=== PATIENT | male | born 1965 | race Caucasian/White ===

== ENCOUNTER 2017-06-09 20:56 | Observation (INO) ==
[2017-06-10] MEDS ORDERED: Naloxone 0.4 MG/ML INJ IVP PRN (00:54)
--- NOTE | 2017-06-10 01:02 | Internal Med History&Physical ---
Date of Encounter: 06/10/17 Time of Encounter: 00:59 Assessment and Plan (1) Chest pain Current visit: No Status: Acute Clinical hx could suggest PE or cardiac ? Will work up PE first with CTA, if PE negative, would rec stress testing to r/o ischemia. Trend trop Qualifiers: Chest pain type: precordial pain Qualified Code(s): R07.2 - Precordial pain (2) Dyspnea on exertion Current visit: No Status: Acute Clinical hx could suggest PE or cardiac ? Will work up PE first with CTA, if PE negative, would rec stress testing to r/o ischemia. Trend trop (3) CAD (coronary artery disease) Current visit: Yes Status: Acute start 81 ASA Qualifiers: Coronary Disease-Associated Artery/Lesion type: [place] artery [place] vs. transplanted heart: [place] heart Qualified Code(s): I25.10 - Atherosclerotic heart disease of [place] coronary artery without angina pectoris (4) GERD (gastroesophageal reflux disease) Current visit: Yes Status: Acute PPI Qualifiers: Esophagitis presence: without esophagitis Qualified Code(s): K21.9 - Gastro -esophageal reflux disease without esophagitis Internal Medicine - H&P: HPI Chief complaint: Chest pain, [place] History of present illness: Mr. Gill is a 51 year old male who presents with acute onset chest pain, [place] since this morning. He was awaken from bed at 4 a.m this morning with acute onset left sided chest pain. Associated with radiation up to shoulder blade. Associated light headed and near syncope sensation. He feels SOB on walking 3-4 steps which is atypical for a high functioning individual like himself. He denies any LLE swelling. He has only recently had health insurance and has therefore been loss to follow up in the past. He is only taking omeprazole. In terms of his medical hx, he had a hx of [place] in 2011 and had stents placement at [facility] - due to insurance issues, he is not on cardiac meds. He also tells me that he is a hx of trauma associated right DVT in 2000 associated with trauma and was reported to be on short term anticoagulation EKG reviewed by self with rate 90 NSR CXR clear Trop negative Past Med Surg Social Fam HX - Past Medical History Medical history: coronary artery disease, GERD, myocardial infarction Psychiatric history: no psych history - Social History Smoking Status: Current every day smoker Smokeless Tobacco Status: No Alcohol use: occasionally Drug use: none - Family History Mother Living Status: Age at : 63 Hx Family Cardiac Disorders: Yes (Heart disease) Hx Family Endocrine Disorder: Yes (DM) Father Living Status: Age at : 73 Cause of : Black lung Hx Family Respiratory Disorders: Yes Internal Medicine - H&P: Meds Omeprazole Magnesium [Prilosec Otc] 20 mg PO DAILY 11/28/16 [History] 3 Allergy/AdvReac Type Severity Reaction Status Date / Time ketorolac [From Toradol] Allergy Rash Verified 11/28/16 20:06 lorazepam [From Ativan] Allergy Rash Verified 11/28/16 20:06 tramadol Allergy Rash Verified 11/28/16 20:06 Zolpidem [From Ambien] Allergy Rash Verified 11/28/16 20:06 All Systems PM: A 10-system review of systems was performed and is negative for pertinent findings except as documented above in the HPI. Review of systems: ROS 14 point review of systems reviewed as best as possible given presentation. Pertinent positive or negative as per HPI or otherwise reviewed as negative - Constitutional Vitals: Temp Pulse Resp BP Pulse Ox 97.8 F 75 16 162/111 98 06/09/17 22:58 06/09/17 22:58 06/09/17 22:58 06/09/17 22:58 06/09/17 22:58 Exam: General - AAO x 3 Psych - Appropriate affect/speech. No agitation Eyes - HA. Eye lids intact. No scleral icterus ENT - Oral mucosa pink, dentition intact. External ear clear/dry/intact. No thyromegaly Lymphatics - No cervical/inguinal lympadenopathy Neuro - No gross peripheral or central neuro deficits with intact CN 2-12 exam Heart - Sinus. RRR. S1 and S2 present. No added HS/murmurs appreciated. No elevated JVD appreciated. No calf swellings/erythema Lung - Adequate air entry b/l, No crackes/wheezes appreciated GI - Soft, non-tender. No hepatosplenomegaly/ascites. BS+ - No CVA/suprapubic tenderness or palpable bladder distension Skin - Intact. No rash/petechiae/ecchymosis. Warm extremities MSK - Joints with normal ROM. No joint swellings
[2017-06-10 01:41] LABS: BUN/Creatinine Ratio 17 (6-26); Blood Urea Nitrogen 12 mg/dL (8-26); Calcium 8.8 mg/dL (8.6-10.8); Carbon Dioxide 23 mEq/L (19-29); Chloride 107 mEq/L (98-109); Glucose 96 mg/dL (70-99); Osmolality,Calculated 282 (280-300); Potassium 3.8 mEq/L (3.5-4.5); Sodium 136 mEq/L (136-145); eGFR For African Americans > 60 (> 60); eGFR For Non-African Americans > 60 (> 60)
[2017-06-10] MEDS ORDERED: *HR* Acetaminophen w/Cod 300-30 mg 1 TAB TABLET PO PRN (03:09)
[2017-06-10] MEDS ORDERED: Nitroglycerin 0.4 MG TAB.SUBL SL PRN (03:09)
[2017-06-10] MEDS ORDERED: *HR* Morphine 2 MG/ML SYRINGE IVP ONE (03:40)
[2017-06-10] MEDS: 0.9 % Sodium Chloride 1,000 ML IVC SCH ×2 (04:00→15:20)
[2017-06-10] MEDS ORDERED: Regadenoson 0.4 MG/5 ML SYRINGE IVP ONE (07:38)
[2017-06-10] MEDS ORDERED: *HR* Morphine 2 MG/ML SYRINGE IVP PRN (09:29)
--- NOTE | 2017-06-10 10:28 | Nuclear Medicine Stress Report ---
Regadenoson Nuclear Stress Name: Ramiro Gill Date of Study: 06/10/2017 Date: 1965 Ht: 71.0 in Medical Record#: [id number] Age: 51 Wt: 200.0 lb Gender: Male Order #: [id number] Location: [facility] Room: [facility] Supervising Provider: Shant Lee CNP Reading Physician: Evon Crespo DO Ordering Physician: Marta Amezquita CNP Primary Care Physician: None Stress Technologist: Jessica Machado LANDSCAPE ACCOUNT MANAGER, CCT Gate Watchman: Virginie Raymundo Indications: Chest Pain Impression: Perfusion imaging negative for ischemia or infarct. Inferior wall artifact. Pharmacologic stress ECG is negative for ischemia at level of heart rate achieved. Patient described 7/10 chest pain prior to the start of study, increasing to 8/10 with pharmacologic infusion and then returning to 7/10 at end of testing. Symptoms are non-diagnostic. Gated EF = 60%. Recommend clinical correlation. History: Hypercholesteremia History of Smoking Prior PCI Stress Test Summary: Stress Test Type: Pharmacologic Regadenoson 0.4mg/5ml given IV Baseline Information: Initial Heart Rate: 71 Blood Pressure: 108/88 Stress Information: Test Terminated Due to (primary): As per protocol Maximum Blood Pressure: 128/84 Maximum Heart Rate: 93 Percent Maximum Heart Rate Achieved: 56 Double Product: [id number] METS Reached: 1 Symptoms: Chest pain Nuclear Summary: SPECT myocardial perfusion imaging using Tc99m Sestamibi given intravenously was performed at rest and following cardiac stress testing. The resting images were obtained following initial dose of 11.7 mCi. Following stress an additional dose of 33.2 mCi was given at peak exercise or 30 seconds post regadenoson infusion. Medication Given: Time Medication Dose Units Route Findings: Stress Note * Resting ECG demonstrated normal sinus rhythm with possible old septal [place]. * Pharmacologic stress ECG is negative for ischemia at level of heart rate achieved. * No arrhythmias were noted during stress. * Patient described 7/10 chest pain prior to the start of study, increasing to 8/10 with pharmacologic infusion and then returning to 7/10 at end of testing. Hemodynamic responses * Normal hemodynamic responses to pharmacologic stress. Study Quality * Study quality was fair. Gated EF % * Gated EF = 60%. Left Ventricle * The left ventricle is not dilated. TID * No evidence of transient ischemic dilatation. Lung Uptake * There is no evidence of increase lung uptake. NORMALS * Normal wall motion. PERFUSION * There is a medium sized fixed perfusion defect involving the basal to distal infero-septum, the apical inferior wall and apex. Wall motion is normal. Findings represent artifact. No ischemia or infarct. * Other segments demonstrate normal rest and stress perfusion. Updated by Evon Crespo on 06/10/2017 10:21:30 AM electronically signed on 06/10/2017 10:23:22 AM with status of Final
[2017-06-10 15:22] VITALS: BP 122/78
--- NOTE | 2017-06-10 15:48 | Discharge Summary ---
Date of Encounter: 06/10/17 Time of Encounter: 15:43 - Discharge Diagnosis (1) Chest pain Priority: Primary Status: Acute Qualifiers: Chest pain type: precordial pain Qualified Code(s): R07.2 - Precordial pain (2) CAD (coronary artery disease) Priority: Secondary Status: Chronic Qualifiers: Coronary Disease-Associated Artery/Lesion type: [place] artery [place] vs. transplanted heart: [place] heart Qualified Code(s): I25.10 - Atherosclerotic heart disease of [place] coronary artery without angina pectoris (3) GERD (gastroesophageal reflux disease) Priority: Secondary Status: Acute Qualifiers: Esophagitis presence: without esophagitis Qualified Code(s): K21.9 - Gastro -esophageal reflux disease without esophagitis (4) Tobacco dependence Priority: Secondary Status: Acute - Discharge Medications Prescriptions: Aspirin Enteric Coated [Aspirin EC] 81 mg PO DAILY #30 tablet. Atorvastatin Calcium [Lipitor] 20 mg PO HS #30 tablet Metoprolol [Lopressor] 12.5 mg PO BID 30 Days Nitroglycerin 0.4 mg SL DAILY PRN #20 tab.subl PRN Reason: Chest Pain Home Medications: Omeprazole Magnesium [Prilosec Otc] 20 mg PO DAILY 11/28/16 [History] Aspirin Enteric Coated [Aspirin EC] 81 mg PO DAILY #30 tablet. 06/10/17 [Rx] Atorvastatin Calcium [Lipitor] 20 mg PO HS #30 tablet 06/10/17 [Rx] Metoprolol [Lopressor] 12.5 mg PO BID 30 Days 06/10/17 [Rx] Nicotine Patch [Nicoderm] 21 mg TD DAILY #30 patch.td24 06/10/17 [Rx] Nitroglycerin 0.4 mg SL DAILY PRN #20 tab.subl 06/10/17 [Rx] Allergies/Adverse Reactions: 3 Allergy/AdvReac Type Severity Reaction Status Date / Time ketorolac [From Toradol] Allergy Rash Verified 11/28/16 20:06 lorazepam [From Ativan] Allergy Rash Verified 11/28/16 20:06 tramadol Allergy Rash Verified 11/28/16 20:06 Zolpidem [From Ambien] Allergy Rash Verified 11/28/16 20:06 Procedures/tests Complete & Pending: Procedures Performed prior 72 hours Category Date Time Status CT angio chest [CT] Stat Cat Scan 06/10/17 00:56 Completed NM hazel perf SPECT multi [NM] Routine Exams 06/10/17 06:17 Taken SP pharm nuclear stress Routine Y 06/10/17 06:16 Completed Date of admission: 06/09/17 22:33 Primary care physician: PCP NONE - Patient Status Disposition: Home, Self-Care Condition: Good Overall status at discharge: patient is back to baseline - Discharge Instructions Follow Up With: NONE,PCP [Primary Care Provider] - - Diet and Activity Activity: increase activity as tolerated Diet: low salt diet Hospital course: Mr. Gill is a 51 year old male who presents with acute onset chest pain, [place] since this morning. He was awaken from bed at 4 a.m this morning with acute onset left sided chest pain. Associated with radiation up to shoulder blade. Associated light headed and near syncope sensation. He feels SOB on walking 3-4 steps which is atypical for a high functioning individual like himself. He denies any LLE swelling. He has only recently had health insurance and has therefore been loss to follow up in the past. He is only taking omeprazole. In terms of his medical hx, he had a hx of [place] in 2011 and had stents placement at [facility] - due to insurance issues, he is not on cardiac meds. He also tells me that he is a hx of trauma associated right DVT in 2000 associated with trauma and was reported to be on short term anticoagulation. 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 So far his troponin x 3 negative and no acute EKG changes noticed. His CTA of chest negative for any PE. Since he is high risk for ACS, we did stress test which came back as negative for any ischemia. Pt denied any active chest pain now. I counseled the pt about importance of taking all his cardiac medication especially after a stent placement. Also counseled to quit smoking. Sent him home on nicotine patches. - Time Spent with Patient Total time spent providing and/or coordinating discharge services: - Constitutional Vitals: Temp Pulse Resp BP Pulse Ox 97.6 F 72 16 122/78 95 06/10/17 15:21 06/10/17 15:21 06/10/17 15:21 06/10/17 15:21 06/10/17 15:21 General appearance: Present: A&O X 3, pleasant, no acute distress - Head Head exam: Present: atraumatic, normal inspection - Respiratory Respiratory exam: Present: decreased breath sounds. Absent: rales, respiratory distress, rhonchi, wheezes - Cardiovascular Cardiovascular exam: Present: RRR, +S1, +S2. Absent: diastolic murmur, gallop, rubs, systolic murmur - Extremities Exam Extremities exam: Present: warm, radial pulses palpable and symmetrical. Absent : calf tenderness, cyanotic, pedal edema - Neurological Exam Neurological exam: Present: alert, oriented X3 - Psychiatric Psychiatric exam: Present: normal affect, normal mood
== END 2017-06-10 17:55 | disposition home or self-care (01) ==
LOC: 3BNU
PROVIDERS: ADMIT Internal Medicine Hematology & Oncology; ATTEND Nurse Practitioner Family

== ENCOUNTER 2018-02-15 13:07 | Observation (INO) ==
[2018-02-15] MEDS ORDERED: 0.9 % Sodium Chloride 1,000 ML IVC ONE (13:17)
[2018-02-15] MEDS ORDERED: *HR* Morphine 2 MG/ML SYRINGE IVP ONE ×2 (13:17→15:14)
[2018-02-15] MEDS ORDERED: Isovue-370 500 ML INFUS..BTL IV ONE (13:18)
--- NOTE | 2018-02-15 13:22 | Emergency Department Note ---
Disposition Clinical Impression: Diverticulitis Disposition: Admitted As Inpatient Condition: Good Time of Disposition: 15:16 Abdominal Pain HPI - General Chief Complaint: ED Abdominal Pain Stated Complaint: Possible perforation Time Seen by Provider: 02/15/18 13:14 Source: patient Mode of arrival: ambulatory Limitations: no limitations Nursing Notes Reviewed: Yes Vital Signs Reviewed: Yes - History of Present Illness HPI Narrative: Patient presents to the ED with the chief complaint of left lower quadrant abdominal pain. Onset was 4 days ago, significantly worse today. 2 years ago he had a perforated diverticulitis and he states this feels the same. Febrile up to 102.4. Associated with nausea and vomiting. No chest pain or shortness of breath. No diarrhea. Has not had anything to eat or drink in 48 hours. Due to pain and vomiting. He was able to take some Tylenol today, which brought his fever down. He states that they wanted to do a colostomy previously, but he did not want that at this time, but he cannot take the pain anymore Pain Scale: 9 - Related Data Home Medications Medication Instructions Recorded Confirmed Acetaminophen [Tylenol] 650 mg PO Q6HR PRN 02/15/18 02/15/18 Etodolac [Etodolac] 400 mg PO BID PRN 02/15/18 02/15/18 Gabapentin [Neurontin] 300 mg PO TID PRN 02/15/18 02/15/18 Allergies Allergy/AdvReac Type Severity Reaction Status Date / Time ketorolac [From Toradol] Allergy Rash Verified 02/15/18 13:42 lorazepam [From Ativan] Allergy Rash Verified 02/15/18 13:42 tramadol Allergy Rash Verified 02/15/18 13:42 Zolpidem [From Ambien] Allergy Rash Verified 02/15/18 13:42 Review of Systems: As reviewed in the HPI. All other systems reviewed are negative or normal. Abdominal Pain PMH - Past Medical History Medical history: Reports: coronary artery disease, GERD, myocardial infarction Male Surgical History: Reports: appendectomy, other Psychiatric history: Reports: no psych history - Social History Smoking status: Current every day smoker Alcohol use: Reports: occasionally Drug use: Reports: none Physical Exam - General Limitations: no limitations General appearance: alert, in no apparent distress - ENT ENT exam: mucous membranes dry - Chest Chest inspection: Present: normal inspection, symmetric chest wall rise - Respiratory Respiratory exam: Present: normal lung sounds bilaterally - Cardiovascular Cardiovascular exam: Present: tachycardia, normal heart sounds - Abdominal Exam Abdominal exam: Present: soft, tenderness, distention, rebound. Absent: Non- Tender, guarding Abdominal tenderness: Present: LLQ, moderate, severe - Extremities Exam Extremities exam: Present: normal inspection, full ROM. Absent: tenderness, pedal edema - Back Exam Back exam: Present: normal inspection, full ROM. Absent: tenderness - Neurological Exam Neurological exam: Present: alert, oriented X3 - Psychiatric Psychiatric exam: Present: normal affect, normal mood - Skin Skin exam: Present: warm, dry, intact, normal color Course Course Narrative: Patient likely with perforated diverticulitis versus abscess. Labs, CT with IV contrast and admission. - Reevaluation(s) Reevaluation #1: no perf or abscess, patient isn't able to tolerate PO so will admit. Vital Signs Temperature 97.9 F 02/15/18 13:08 Pulse Rate 108 02/15/18 13:08 Respiratory Rate 18 02/15/18 13:08 Blood Pressure 141/94 02/15/18 13:08 O2 Sat by Pulse Oximetry 94 02/15/18 13:08 Temperature 99.0 F 02/15/18 13:24 Pulse Rate 89 02/15/18 14:00 Respiratory Rate 18 02/15/18 14:00 Blood Pressure 148/94 02/15/18 14:00 O2 Sat by Pulse Oximetry 96 02/15/18 14:00 Oxygen Delivery Oxygen Delivery Room Air Abdominal Pain - Medical Records Medical records reviewed: Yes I reviewed the patient's medical records. - Lab Data Lab results reviewed: Yes I reviewed the patient's lab results. Result diagrams: 02/15/18 13:23 02/15/18 13:23 Lab Results 02/15/18 02/15/18 02/15/18 Range/Units 13:23 13:23 13:23 WBC 8.3 (4.3-11.1) K/mcL RBC 5.15 (4.19-5.50) M/mcL Hgb 15.3 (12.9-16.9) g/dL Hct 43.6 (37.5-50.1) % MCV 84.7 (83.0-100.0) fL MCH 29.7 (28.0-33.3) pg MCHC 35.1 (31.6-35.5) g/dL RDW 13.4 (11.5-14.5) % Plt Count 279 (140-400) K/mcL MPV 8.9 L (9.4-12.4) fL Immature Gran % 0.1 (0-4) % Seg Neutrophils % 68.0 % Lymphocytes % 24.2 % Monocytes % 5.7 % Eosinophils % 1.5 % Basophils % 0.5 % Neutrophils # 5.6 (1.6-8.9) K/mcL Lymphocytes # 2.0 (0.6-4.6) K/mcL Monocytes # 0.5 (0.0-1.3) K/mcL Eosinophils # 0.1 (0.0-0.6) K/mcL Basophils # 0.0 (0.0-0.2) K/mcL Sodium 138 (136-145) mEq/L Potassium 3.8 (3.5-5.1) mEq/L Chloride 107 (98-107) mEq/L Carbon Dioxide 25 (23-29) mEq/L BUN 13 (6-20) mg/dL Creatinine 0.91 (0.70-1.30) mg/dL Est GFR ( Amer) > 60 (> 60) Est GFR (Non-Af Amer) > 60 (> 60) BUN/Creatinine Ratio 14 (6-26) Glucose 153 H (70-105) mg/dL Calculated Osmolality 289 (280-300) Lactic Acid 1.2 (0.5-2.2) mmol/L Calcium 8.8 (8.6-10.3) mg/dL Total Bilirubin 0.4 (0.3-1.0) mg/dL Direct Bilirubin 0.1 (0.0-0.2) mg/dL Indirect Bilirubin 0.3 (0.0-1.2) mg/dL AST 18 (13-39) Units/L ALT 13 (7-52) Units/L Alkaline Phosphatase 66 (34-104) Units/L Troponin I < 0.03 (< 0.04) ng/mL Serum Total Protein 6.3 L (6.4-8.9) g/dL Albumin 4.0 (3.5-5.7) g/dL Globulin 2.3 L (2.4-3.5) g/dL Albumin/Globulin Ratio 1.7 (1.1-2.2) Lipase 157 H (11-82) Units/L Urine Color (Yellow) Urine Clarity (Clear) Urine pH (5.0-8.0) pH Units Ur Specific [place] (1.010-1.025) Urine Protein (Neg-Trace) mg/dL Urine Glucose (UA) (Normal) mg/dL Urine Ketones (Negative) mg/dL Urine Blood (Negative) Urine Nitrite (Negative) Urine Bilirubin (Negative) Urine Urobilinogen (Normal) mg/dL Ur Leukocyte Esterase (Negative) Urine Microscopic RBC (0-3) per hpf Ur Squamous Epith Cells (None-Few) per lpf Urine Bacteria (None-Few) per hpf Hyaline Casts (None-Few) per lpf Ur Culture Indicated? (NO) 02/15/18 Range/Units 13:54 WBC (4.3-11.1) K/mcL RBC (4.19-5.50) M/mcL Hgb (12.9-16.9) g/dL Hct (37.5-50.1) % MCV (83.0-100.0) fL MCH (28.0-33.3) pg MCHC (31.6-35.5) g/dL RDW (11.5-14.5) % Plt Count (140-400) K/mcL MPV (9.4-12.4) fL Immature Gran % (0-4) % Seg Neutrophils % % Lymphocytes % % Monocytes % % Eosinophils % % Basophils % % Neutrophils # (1.6-8.9) K/mcL Lymphocytes # (0.6-4.6) K/mcL Monocytes # (0.0-1.3) K/mcL Eosinophils # (0.0-0.6) K/mcL Basophils # (0.0-0.2) K/mcL Sodium (136-145) mEq/L Potassium (3.5-5.1) mEq/L Chloride (98-107) mEq/L Carbon Dioxide (23-29) mEq/L BUN (6-20) mg/dL Creatinine (0.70-1.30) mg/dL Est GFR ( Amer) (> 60) Est GFR (Non-Af Amer) (> 60) BUN/Creatinine Ratio (6-26) Glucose (70-105) mg/dL Calculated Osmolality (280-300) Lactic Acid (0.5-2.2) mmol/L Calcium (8.6-10.3) mg/dL Total Bilirubin (0.3-1.0) mg/dL Direct Bilirubin (0.0-0.2) mg/dL Indirect Bilirubin (0.0-1.2) mg/dL AST (13-39) Units/L ALT (7-52) Units/L Alkaline Phosphatase (34-104) Units/L Troponin I (< 0.04) ng/mL Serum Total Protein (6.4-8.9) g/dL Albumin (3.5-5.7) g/dL Globulin (2.4-3.5) g/dL Albumin/Globulin Ratio (1.1-2.2) Lipase (11-82) Units/L Urine Color Yellow (Yellow) Urine Clarity Clear (Clear) Urine pH 7.0 (5.0-8.0) pH Units Ur Specific [place] 1.023 (1.010-1.025) Urine Protein Trace (Neg-Trace) mg/dL Urine Glucose (UA) Normal (Normal) mg/dL Urine Ketones Negative (Negative) mg/dL Urine Blood Negative (Negative) Urine Nitrite Negative (Negative) Urine Bilirubin Negative (Negative) Urine Urobilinogen Normal (Normal) mg/dL Ur Leukocyte Esterase Negative (Negative) Urine Microscopic RBC 3-5 H (0-3) per hpf Ur Squamous Epith Cells Moderate H (None-Few) per lpf Urine Bacteria None Seen (None-Few) per hpf Hyaline Casts None Seen (None-Few) per lpf Ur Culture Indicated? NO (NO) - Radiology Data Radiology results reviewed: Yes I reviewed the patient's radiology results. - EKG Data EKG attestation: Yes I reviewed and interpreted this EKG. EKG results narrative: Sinus tach, rate 101, LA interval 143, QRS 78, QTC 407, normal axis, no acute ischemic changes
--- NOTE | 2018-02-15 13:24 | Emergency Department Note ---
Disposition Clinical Impression: Diverticulitis Disposition: Admitted As Inpatient Condition: Good General Adult HPI - General Chief complaint: ED Abdominal Pain Stated complaint: Possible perforation Time Seen by Provider: 02/15/18 13:14 Nursing Notes Reviewed: Yes Vital Signs Reviewed: Yes - History of Present Illness Pain Scale: 9 - Related Data Home Medications Medication Instructions Recorded Confirmed Acetaminophen [Tylenol] 650 mg PO Q6HR PRN 02/15/18 02/15/18 Etodolac [Etodolac] 400 mg PO BID PRN 02/15/18 02/15/18 Gabapentin [Neurontin] 300 mg PO TID PRN 02/15/18 02/15/18 Allergies Allergy/AdvReac Type Severity Reaction Status Date / Time ketorolac [From Toradol] Allergy Rash Verified 02/15/18 13:42 lorazepam [From Ativan] Allergy Rash Verified 02/15/18 13:42 tramadol Allergy Rash Verified 02/15/18 13:42 Zolpidem [From Ambien] Allergy Rash Verified 02/15/18 13:42 Past Medical History - Past Medical History Medical history: Reports: coronary artery disease, GERD, myocardial infarction Psychiatric history: Reports: no psych history - Social History Smoking Status: Current every day smoker Smokeless Tobacco Status: No Alcohol use: Reports: occasionally Drug use: Reports: none Course Vital Signs Temperature 97.9 F 02/15/18 13:08 Pulse Rate 108 02/15/18 13:08 Respiratory Rate 18 02/15/18 13:08 Blood Pressure 141/94 02/15/18 13:08 O2 Sat by Pulse Oximetry 94 02/15/18 13:08 Temperature 96.9 F L 02/15/18 16:21 Pulse Rate 78 02/15/18 16:21 Respiratory Rate 18 02/15/18 16:21 Blood Pressure 147/90 02/15/18 18:03 O2 Sat by Pulse Oximetry 97 02/15/18 16:28 Oxygen Delivery Oxygen Delivery Room Air Medical Decision Making - MDM Narrative Medical decision making narrative: This documentation is done with the assistance of Dragon dictation. Despite efforts made to ensure accuracy, there may be inaccuracies in folder stitcher operator or spelling and typographical errors. Patient seen with left lower quadrant pain and suspicion of perforation. He said diverticulitis in the past with perforation. We will get labs CT order pain medications fluids and something for nausea and then he will need admission. He is in agreement with this plan. Abdomen/Pelvis CT 02/15/18 13:18 IMPRESSION: Findings compatible with acute uncomplicated sigmoid diverticulitis. No evidence for perforation or abscess formation. Mild wall thickening involving descending colon could relate to underdistention or to the sigmoid diverticulitis, but superimposed nonspecific infectious or inflammatory colitis not excluded. Multiple prominent fluid-filled loops of small bowel to the left predominantly mid to lower abdomen could reflect a focal ileus relating to the sigmoid diverticulitis. Early or partial small bowel obstruction not entirely excluded. D/ / 02/15/2018 14:48:43 Chavez Whiteside MD / jerrod Interpreting Provider: Chavez Whiteside MD Patient CT is positive for diverticulitis no perforation. We will start him on IV antibiotics and admit. He is in agreement with plan. - Lab Data Result diagrams: 02/15/18 13:23 02/15/18 13:23 Lab Results 02/15/18 02/15/18 02/15/18 Range/Units 13:23 13:23 13:23 WBC 8.3 (4.3-11.1) K/mcL RBC 5.15 (4.19-5.50) M/mcL Hgb 15.3 (12.9-16.9) g/dL Hct 43.6 (37.5-50.1) % MCV 84.7 (83.0-100.0) fL MCH 29.7 (28.0-33.3) pg MCHC 35.1 (31.6-35.5) g/dL RDW 13.4 (11.5-14.5) % Plt Count 279 (140-400) K/mcL MPV 8.9 L (9.4-12.4) fL Immature Gran % 0.1 (0-4) % Seg Neutrophils % 68.0 % Lymphocytes % 24.2 % Monocytes % 5.7 % Eosinophils % 1.5 % Basophils % 0.5 % Neutrophils # 5.6 (1.6-8.9) K/mcL Lymphocytes # 2.0 (0.6-4.6) K/mcL Monocytes # 0.5 (0.0-1.3) K/mcL Eosinophils # 0.1 (0.0-0.6) K/mcL Basophils # 0.0 (0.0-0.2) K/mcL Sodium 138 (136-145) mEq/L Potassium 3.8 (3.5-5.1) mEq/L Chloride 107 (98-107) mEq/L Carbon Dioxide 25 (23-29) mEq/L BUN 13 (6-20) mg/dL Creatinine 0.91 (0.70-1.30) mg/dL Est GFR ( Amer) > 60 (> 60) Est GFR (Non-Af Amer) > 60 (> 60) BUN/Creatinine Ratio 14 (6-26) Glucose 153 H (70-105) mg/dL Calculated Osmolality 289 (280-300) Lactic Acid 1.2 (0.5-2.2) mmol/L Calcium 8.8 (8.6-10.3) mg/dL Total Bilirubin 0.4 (0.3-1.0) mg/dL Direct Bilirubin 0.1 (0.0-0.2) mg/dL Indirect Bilirubin 0.3 (0.0-1.2) mg/dL AST 18 (13-39) Units/L ALT 13 (7-52) Units/L Alkaline Phosphatase 66 (34-104) Units/L Troponin I < 0.03 (< 0.04) ng/mL Serum Total Protein 6.3 L (6.4-8.9) g/dL Albumin 4.0 (3.5-5.7) g/dL Globulin 2.3 L (2.4-3.5) g/dL Albumin/Globulin Ratio 1.7 (1.1-2.2) Lipase 157 H (11-82) Units/L Urine Color (Yellow) Urine Clarity (Clear) Urine pH (5.0-8.0) pH Units Ur Specific [place] (1.010-1.025) Urine Protein (Neg-Trace) mg/dL Urine Glucose (UA) (Normal) mg/dL Urine Ketones (Negative) mg/dL Urine Blood (Negative) Urine Nitrite (Negative) Urine Bilirubin (Negative) Urine Urobilinogen (Normal) mg/dL Ur Leukocyte Esterase (Negative) Urine Microscopic RBC (0-3) per hpf Ur Squamous Epith Cells (None-Few) per lpf Urine Bacteria (None-Few) per hpf Hyaline Casts (None-Few) per lpf Ur Culture Indicated? (NO) 02/15/18 Range/Units 13:54 WBC (4.3-11.1) K/mcL RBC (4.19-5.50) M/mcL Hgb (12.9-16.9) g/dL Hct (37.5-50.1) % MCV (83.0-100.0) fL MCH (28.0-33.3) pg MCHC (31.6-35.5) g/dL RDW (11.5-14.5) % Plt Count (140-400) K/mcL MPV (9.4-12.4) fL Immature Gran % (0-4) % Seg Neutrophils % % Lymphocytes % % Monocytes % % Eosinophils % % Basophils % % Neutrophils # (1.6-8.9) K/mcL Lymphocytes # (0.6-4.6) K/mcL Monocytes # (0.0-1.3) K/mcL Eosinophils # (0.0-0.6) K/mcL Basophils # (0.0-0.2) K/mcL Sodium (136-145) mEq/L Potassium (3.5-5.1) mEq/L Chloride (98-107) mEq/L Carbon Dioxide (23-29) mEq/L BUN (6-20) mg/dL Creatinine (0.70-1.30) mg/dL Est GFR ( Amer) (> 60) Est GFR (Non-Af Amer) (> 60) BUN/Creatinine Ratio (6-26) Glucose (70-105) mg/dL Calculated Osmolality (280-300) Lactic Acid (0.5-2.2) mmol/L Calcium (8.6-10.3) mg/dL Total Bilirubin (0.3-1.0) mg/dL Direct Bilirubin (0.0-0.2) mg/dL Indirect Bilirubin (0.0-1.2) mg/dL AST (13-39) Units/L ALT (7-52) Units/L Alkaline Phosphatase (34-104) Units/L Troponin I (< 0.04) ng/mL Serum Total Protein (6.4-8.9) g/dL Albumin (3.5-5.7) g/dL Globulin (2.4-3.5) g/dL Albumin/Globulin Ratio (1.1-2.2) Lipase (11-82) Units/L Urine Color Yellow (Yellow) Urine Clarity Clear (Clear) Urine pH 7.0 (5.0-8.0) pH Units Ur Specific [place] 1.023 (1.010-1.025) Urine Protein Trace (Neg-Trace) mg/dL Urine Glucose (UA) Normal (Normal) mg/dL Urine Ketones Negative (Negative) mg/dL Urine Blood Negative (Negative) Urine Nitrite Negative (Negative) Urine Bilirubin Negative (Negative) Urine Urobilinogen Normal (Normal) mg/dL Ur Leukocyte Esterase Negative (Negative) Urine Microscopic RBC 3-5 H (0-3) per hpf Ur Squamous Epith Cells Moderate H (None-Few) per lpf Urine Bacteria None Seen (None-Few) per hpf Hyaline Casts None Seen (None-Few) per lpf Ur Culture Indicated? NO (NO) Attestation Statement - Attestation Attestation: I examined this patient and my medical decision-making was reviewed with the Resident Physician. I agree with the documented findings, disposition and treatment plan as described except to the extent set forth below. Patient seen and evaluated by Dr. Manzano and myself, I agree with his evaluation management plan, supervise care the patient's stay.
[2018-02-15 13:33] LABS: Basophils % 0.5 %; Eosinophils # 0.1 K/mcL (0.0-0.6); Eosinophils % 1.5 %; Hematocrit 43.6 % (37.5-50.1); Hemoglobin 15.3 g/dL (12.9-16.9); Immature Granulocytes % 0.1 % (0-4); Lymphocytes % 24.2 %; Mean Corpuscular HGB Conc 35.1 g/dL (31.6-35.5); Mean Corpuscular Hemoglobin 29.7 pg (28.0-33.3); Mean Corpuscular Volume 84.7 fL (83.0-100.0); Mean Platelet Volume 8.9 fL (9.4-12.4); Monocytes # 0.5 K/mcL (0.0-1.3); Monocytes % 5.7 %; Neutrophils # 5.6 K/mcL (1.6-8.9); Platelet Count 279 K/mcL (140-400); Red Blood Count 5.15 M/mcL (4.19-5.50); Red Cell Distribution Width 13.4 % (11.5-14.5)
[2018-02-15 14:04] LABS: Troponin I < 0.03 ng/mL (< 0.04)
[2018-02-15 14:05] LABS: Alanine Aminotransferase 13 Units/L (7-52); Albumin/Globulin Ratio 1.7 (1.1-2.2); Alkaline Phosphatase 66 Units/L (34-104); Aspartate Amino Transferase 18 Units/L (13-39); BUN/Creatinine Ratio 14 (6-26); Bilirubin,Direct 0.1 mg/dL (0.0-0.2); Bilirubin,Indirect 0.3 mg/dL (0.0-1.2); Bilirubin,Total 0.4 mg/dL (0.3-1.0); Blood Urea Nitrogen 13 mg/dL (6-20); Calcium 8.8 mg/dL (8.6-10.3); Carbon Dioxide 25 mEq/L (23-29); Chloride 107 mEq/L (98-107); Globulin 2.3 g/dL (2.4-3.5); Glucose 153 mg/dL (70-105); Lipase 157 Units/L (11-82); Osmolality,Calculated 289 (280-300); Potassium 3.8 mEq/L (3.5-5.1); Sodium 138 mEq/L (136-145); Total Protein 6.3 g/dL (6.4-8.9); eGFR For African Americans > 60 (> 60); eGFR For Non-African Americans > 60 (> 60)
[2018-02-15 14:09] LABS: Bilirubin,Urine Negative (Negative); Blood,Urine Negative (Negative); Color,Urine Yellow (Yellow); Glucose,Urine (UA) Normal (Normal); Ketones,Urine Negative (Negative); Leukocyte Esterase,Urine Negative (Negative); Nitrite,Urine Negative (Negative); Protein,Urine Trace mg/dL (Neg-Trace); Specific Gravity,Urine 1.023 (1.010-1.025); Urobilinogen,Urine Normal (Normal)
[2018-02-15 14:10] LABS: Bacteria,Urine None Seen per hpf (None-Few); Hyaline Casts,Urine None Seen per lpf (None-Few); Squamous Epithelial Cell,Urine Moderate per lpf (None-Few)
[2018-02-15 14:14] LABS: Clarity,Urine Clear (Clear)
[2018-02-15] MEDS ORDERED: MetroNIDAZOLE 500 MG/100 ML 500 MG/100 ML BAG IVPB ONE (14:55)
[2018-02-15] MEDS ORDERED: Ondansetron 4 MG/2 ML VIAL IVP ONE (15:14)
[2018-02-15] MEDS ORDERED: Ketorolac 30 MG/ML VIAL IVP PRN (15:49)
[2018-02-15] MEDS ORDERED: Ondansetron 4 MG/2 ML VIAL IVP PRN (15:49)
[2018-02-15] MEDS ORDERED: Naloxone 0.4 MG/ML INJ IVP PRN (15:49)
[2018-02-15] MEDS ORDERED: *HR* Morphine 2 MG/ML SYRINGE IVP PRN (16:26)
[2018-02-15] MEDS ORDERED: *HR* HYDROcodone/Acet 5/325 mg TABLET PO PRN (16:30)
--- NOTE | 2018-02-15 16:33 | Internal Med History&Physical ---
<Melani Vera Estee - Last Filed: 02/15/18 16:24> Date of Encounter: 02/15/18 Time of Encounter: 16:24 Internal Medicine - H&P: HPI History of present illness: Mr. Gill is a 52 year old male who presented to the ED with LLQ abdominal pain with associated intermittent nausea that began 4 days ago. He also reported some fevers, and poor appetite. The patient reported a history of perforated diverticulitis about 2 years ago. He refused any surgical intervention during that time, so was treated with antibiotics. The ABD CT showed a sigmoid diverticulitis and mild wall thickening, no perforation was seen. No early SBO obstruction seen Gastroenterology was consulted and accepts the patient for consult. GI recommended that the patient start on zosyn 3.375 q8h only. Paiteint was given morphine in the ED with effective results. Will place scd's and make the pt NPO. Bp is marginally elevated, likely due to pain. WBC is 8.3. Will give ivf's, IV zosyn, npo, and pain control. Patient indicated also has a history of CAD with 1 stent. Past Med Surg Social Fam HX - Past Medical History Medical history: coronary artery disease, GERD, myocardial infarction Psychiatric history: no psych history - Social History Smoking Status: Current every day smoker Smokeless Tobacco Status: No Alcohol use: occasionally Drug use: none - Family History Mother Living Status: Hx Family Cardiac Disorders: Yes (Heart disease) Hx Family Endocrine Disorder: Yes (DM) Father Living Status: Hx Family Respiratory Disorders: Yes Internal Medicine - H&P: Meds Acetaminophen [Tylenol] 650 mg PO Q6HR PRN 02/15/18 [History] Etodolac [Etodolac] 400 mg PO BID PRN 02/15/18 [History] Gabapentin [Neurontin] 300 mg PO TID PRN 02/15/18 [History] 3 Allergy/AdvReac Type Severity Reaction Status Date / Time ketorolac [From Toradol] Allergy Rash Verified 02/15/18 13:42 lorazepam [From Ativan] Allergy Rash Verified 02/15/18 13:42 tramadol Allergy Rash Verified 02/15/18 13:42 Zolpidem [From Ambien] Allergy Rash Verified 02/15/18 13:42 All Systems PM: A 10-system review of systems was performed and is negative for pertinent findings except as documented above in the HPI. - Gastrointestinal Gastrointestinal: abdominal pain, nausea, vomiting - Constitutional Vitals: Temp Pulse Resp BP Pulse Ox 96.9 F L 78 18 163/109 97 02/15/18 16:21 02/15/18 16:21 02/15/18 16:21 02/15/18 16:21 02/15/18 16:21 General appearance: Present: A&O X 3 - Head Head exam: Present: atraumatic, normocephalic - Eye Eye exam: Present: PERRL, conjuntiva pink, sclera anicteric Pupils: Present: PERRL - Neck Neck exam general surgery: Present: supple, trachea midline. Absent: lymphadenopathy - Respiratory Respiratory exam: Present: CTAB. Absent: accessory muscle use, rales, rhonchi, wheezes - Cardiovascular Cardiovascular exam: Present: RRR, +S1, +S2. Absent: diastolic murmur, gallop, rubs, systolic murmur - GI/Abdominal GI/Abdominal exam: Present: normal bowel sounds, soft, tenderness, no peritoneal signs. Absent: distended - Extremities Exam Extremities exam: Present: warm, radial pulses palpable and symmetrical. Absent : calf tenderness, cyanotic, pedal edema - Neurological Exam Neurological exam: Present: CN II-XII intact, oriented X3, no focal deficits. Absent: pronater drift, facial droop, speech deficit - Skin Skin exam: Present: dry, intact Internal Med - H&P Results - Labs CBC & Chem 7: 02/15/18 13:23 02/15/18 13:23 - Assessment and plan (1) Diverticulitis Status: Acute Assessment and plan: The patient will be admitted to hospital for sigmoid diverticulitis. IVF, NPO status, iv zosyn q8h, and pain control. The patient will be seen by GI for further work up. The patient has hx of diverticulitis with perforation, which was treated with oral iv atb, 2 years ago. - Time Spent With Patient Total time spent is greater than 50% in coordination of care (as documented) at patient's floor/unit and/or counseling patient: 25 - 35 minutes <Ethan Durham P - Last Filed: 02/17/18 07:59> Date of Encounter: 02/17/18 Internal Medicine - H&P: HPI History of present illness: Mr. Gill is a 52 year old male All Systems PM: A 10-system review of systems was performed and is negative for pertinent findings except as documented above in the HPI. - Constitutional Vitals: Temp Pulse Resp BP Pulse Ox 97.9 F 73 15 162/100 96 02/15/18 19:15 02/15/18 19:15 02/15/18 19:15 02/15/18 19:15 02/15/18 19:15 Internal Med - H&P Results - Labs CBC & Chem 7: 02/15/18 13:23 02/15/18 13:23 - Attending Attestation I examined this patient and my medical decision-making was reviewed with the Resident Physician. I agree with the documented findings, disposition and treatment plan as described except to the extent set forth below. Seen and examined patient with nurse practitioner Miss Polo. The patient is asking for pain medication. We will give 1 time IV fentanyl low-dose. We will resume his oral pain medications. Patient still demanding for intravenous pain medication - Time Spent With Patient Total time spent is greater than 50% in coordination of care (as documented) at patient's floor/unit and/or counseling patient:
[2018-02-15] MEDS ORDERED: Piperacillin/Tazobactam 3.375 GM in 0.9 % Sodium Chloride Mini Bag 100 ML IVPB SCH (18:00)
[2018-02-15] MEDS ORDERED: *HR* FentaNYL (PF) 100 MCG/2 ML VIAL IVP ONE (18:40)
[2018-02-15 19:17] VITALS: BP 162/100
--- NOTE | 2018-02-15 22:30 | Electrocardiograph Report ---
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
== END 2018-02-15 19:53 | disposition left against medical advice (07) | DRG 244 ==
LOC: 3ANU 13:07 → EMEROO 13:07 → OBSVTOIN 15:08 → INTOOBSV 15:08 → 3ANU 15:50
PROVIDERS: ADMIT Internal Medicine; ATTEND Internal Medicine